=== PATIENT | male | born 1955 | race Caucasian/White ===

== ENCOUNTER 2024-05-28 09:21 | Emergency (ER) | payer MEDICARE ==
[2024-05-28 11:10] LABS: APPEARANCE,URINE TURBID (Clear); BILIRUBIN,URINE NEGATIVE (Negative); COLOR,URINE RED (Yellow); GLUCOSE,URINE NEGATIVE (Negative); KETONES,URINE NEGATIVE (Negative); LEUKOCYTE ESTERASE,URINE NEGATIVE (Negative); NITRITE,URINE NEGATIVE (Negative); OCCULT BLOOD,URINE 3+ (Negative); PROTEIN,URINE 2+ (Negative); UROBILINOGEN,URINE 0.2 (0.2-1.0)
[2024-05-28 11:19] LABS: BACTERIA,URINE RARE /hpf (FEW); MUCUS,URINE NOT SEEN /hpf (FEW); RBC,URINE TOO NUMEROUS TO CNT /hpf (0-5); WBC,URINE 0-5 /hpf (0-5)
[2024-05-28] MEDS: Lidocaine 4% Top Soln 50 ML Bottle MUCMEM ONE (11:36)
== END 2024-05-28 11:48 | disposition home or self-care (01) ==
LOC: JD.ED 09:21
DX: R31.0 Gross hematuria (principal); Z79.82 Long term (current) use of aspirin; Z79.899 Other long term (current) drug therapy
CPT/HCPCS: 51702; 81001; 99283; 99284